=== PATIENT | male | born 1960 | race Caucasian/White ===

== ENCOUNTER 2017-04-19 21:55 | Emergency (ER) | payer OTHER ==
[~2017-04-19] VITALS: Ht 193 cm; Wt 75.0 kg
[~2017-04-19 21:55] MED LIST: AMOXICILLIN500 MG OR; AMOXICILLIN500 MG PO; ASPIRIN 81 LOW81 MG PO; ATENOLOL25 MG PO; BENADRYL 50MG C50 MG OR; BUPROPION150 M4 PO; BUSPAR15 M1 PO; CARDIZEM30 MG PO; CEPHALEXIN500 M1 OR; CEPHALEXIN500 MG OR; CEPHALEXIN500 MG PO; CLONAZEPAM1 MG PO; DIGOXIN0.25 MG PO; DILANTIN100 MG OR; DOXYCYCLINE100 MG PO; EUCERI1 TOP; FLECAINIDE150 MG PO; KEFLEX500 M1 PO; LITHIUM CARB300 MG PO; LOPRESSOR 550 MG/TAB PO; MUCINEX600 MG PO; MULTI VIT PO; OMEGA-3 FISH1000 MG PO; PAROXETINE20 MG PO; PHENOBARB OR; PHENOBARB20 MG/5 ML PO; PHENOBARB30 MG PO; PHENOBARB64.8 MG PO; RESOURCE; ULTRAM50 MG PO; VALPROIC ACD250 M1 PO; WARFARIN7.5 MG PO; WELLBUTRIN SR100 MG PO; WELLBUTRIN SR150 MG PO; ZYPREXA PO
[2017-04-19 22:31] LABS: HEMATOCRIT 43.1 % (39.0-50.0); HEMOGLOBIN 14.7 g/dl (14.0-18.0); IMMATURE GRANULOCYTES 0.2 % (0.0-1.0); MEAN CELL VOLUME 96.9 fL CALC (80.0-100.0); MEAN CORPUSCULAR HGB CONC 34.1 g/L CALC (32.0-36.0); NEUT# 1.79 thou/uL (1.82-7.42); RED BLOOD COUNT 4.45 mill/uL (4.70-6.10); RED CELL DISTRI WIDTH 13.4 % (11.5-15.5)
[2017-04-19] MEDS ORDERED: COUMADIN5 MG PO (22:44)
[2017-04-19] MEDS ORDERED: ATROVENT H17 MCG/ACT IN (22:45)
[2017-04-19 22:49] LABS: ALKALINE PHOSPHATASE 88 u/l (38-126); ANION GAP 14 (6-22 (CALC)); BILIRUBIN, TOTAL 0.6 mg/dL (0.0-1.4); BUN 18 mg/dL (9-20); BUN/CREATININE RATIO 18 (12-20 (CALC)); CALCIUM 8.6 mg/dL (8.4-10.2); CARBON DIOXIDE 25 mmol/l (22-30); CHLORIDE 106 mmol/l (95-108); GFR > 60 ML/MIN (>=60 (CALC)); GFR FOR AFR.AMER. > 60 ML/MIN (>=60 (CALC)); GLUCOSE 72 mg/dL (75-110); SGOT/AST 36 u/l (17-59); SGPT/ALT 28 u/l (21-72); SODIUM 141 mmol/l (137-146)
[2017-04-19 22:50] LABS: ACT PARTIAL THROMBO TIME 32.7 SECONDS (20.0-32.5); PROTHROMBIN TIME 22.2 SECONDS (9.0-12.5)
[2017-04-19 23:01] LABS: MYOGLOBIN 43 ng/mL (0 - 121)
[2017-04-20 00:52] VITALS: BP 101/52
== END 2017-04-20 00:23 | disposition left against medical advice (07) | DRG 313 ==
LOC: ED 21:55 → ED-I 23:35 → ED 04-20 00:23 → ED-I 04-20 00:25
PROVIDERS: Emergency Medicine
DX: R07.9 Chest pain, unspecified (principal); R00.2 Palpitations; R94.31 Abnormal electrocardiogram [ECG] [EKG]; R06.02 Shortness of breath; R42 Dizziness and giddiness; Z91.19 Patient's noncompliance with other medical treatment and regimen

== ENCOUNTER 2017-09-03 18:46 | Emergency (ER) | payer OTHER ==
[~2017-09-03] VITALS: Ht 193 cm; Wt 59.1 kg
[~2017-09-03 18:46] MED LIST changes: +ATROVENT H17 MCG/ACT IN; +COUMADIN5 MG PO
[2017-09-03 19:57] LABS: IMMATURE GRANULOCYTES 0.5 % (0.0-1.0); MEAN CELL VOLUME 99.7 fL CALC (80.0-100.0); MEAN CORPUSCULAR HGB 33.8 pG CALC (26.0-32.0); MEAN CORPUSCULAR HGB CONC 33.9 g/L CALC (32.0-36.0); NEUT# 4.62 thou/uL (1.82-7.42); RED BLOOD COUNT 3.37 mill/uL (4.70-6.10)
[2017-09-03 20:09] LABS: HEMATOCRIT 33.6 % (39.0-50.0); HEMOGLOBIN 11.4 g/dl (14.0-18.0)
[2017-09-03 21:11] LABS: ALBUMIN 2.9 g/dL (3.2-5.0); ALKALINE PHOSPHATASE 65 u/l (38-126); BILIRUBIN, TOTAL 0.7 mg/dL (0.0-1.4); BUN 19 mg/dL (9-20); BUN/CREATININE RATIO 20 (12-20 (CALC)); CARBON DIOXIDE 26 mmol/l (22-30); CHLORIDE 101 mmol/l (95-108); CREATININE 0.9 mg/dL (0.7-1.3); GFR > 60 ML/MIN (>=60 (CALC)); GFR FOR AFR.AMER. > 60 ML/MIN (>=60 (CALC)); POTASSIUM 4.3 mmol/l (3.5-5.1); SGOT/AST 31 u/l (17-59); SGPT/ALT 32 u/l (21-72); TOTAL PROTEIN 6.1 g/dL (6.3-8.2)
[2017-09-03 21:15] LABS: ANION GAP 11 (6-22 (CALC)); SODIUM 134 mmol/l (137-146)
[2017-09-03 21:29] LABS: DIGOXIN 0.4 ng/mL (0.8-2.0)
[2017-09-03 21:31] LABS: ACT PARTIAL THROMBO TIME 23.7 SECONDS (20.0-32.5)
[2017-09-03 21:39] LABS: MYOGLOBIN 102 ng/mL (0 - 121)
[2017-09-03 21:45] LABS: INTERNATIONAL NORMALIZED RATIO 1.1 RATIO (0.7-1.3); PROTHROMBIN TIME 12.6 SECONDS (9.0-12.5)
[2017-09-03 22:32] VITALS: BP 131/87
== END 2017-09-03 22:29 | disposition short-term general hospital (02) | DRG 605 ==
LOC: ED 18:46
PROVIDERS: Emergency Medicine
PROC: 0HQGXZZ Repair Left Hand Skin, External Approach (ICD-10-PCS; principal; 2017-09-03)
PROC: 0HQDXZZ Repair Right Lower Arm Skin, External Approach (ICD-10-PCS; 2017-09-03)
DX: S51.811A Laceration without foreign body of right forearm, initial encounter (principal); I47.2 Ventricular tachycardia; I48.91 Unspecified atrial fibrillation; S61.412A Laceration without foreign body of left hand, initial encounter; S61.511A Laceration without foreign body of right wrist, initial encounter; D64.9 Anemia, unspecified; X78.8XXA Intentional self-harm by other sharp object, initial encounter; Y92.149 Unspecified place in prison as the place of occurrence of the external cause; Z91.5 Personal history of self-harm; Z95.810 Presence of automatic (implantable) cardiac defibrillator; Z79.01 Long term (current) use of anticoagulants
CPT/HCPCS: J0282

== ENCOUNTER 2018-01-23 00:06 | Emergency (ER) | payer OTHER ==
[~2018-01-23] VITALS: Ht 193 cm; Wt 81.0 kg
[2018-01-23 00:57] LABS: HEMATOCRIT 36.9 % (39.0-50.0); HEMOGLOBIN 12.1 g/dl (14.0-18.0); IMMATURE GRANULOCYTES 0.2 % (0.0-5.0); MEAN CORPUSCULAR HGB 29.2 pG CALC (26.0-32.0); MEAN CORPUSCULAR HGB CONC 32.8 g/L CALC (32.0-36.0); NEUT# 2.4 thou/uL (1.82-7.42); RED BLOOD COUNT 4.15 mill/uL (4.70-6.10); RED CELL DISTRI WIDTH 17.5 % (11.5-15.5)
[2018-01-23 01:04] LABS: MEAN CELL VOLUME 88.9 fL CALC (80.0-100.0)
[2018-01-23 01:10] LABS: ALBUMIN 3.4 g/dL (3.2-5.0); ALKALINE PHOSPHATASE 71 u/l (38-126); ANION GAP 13 (6-22 (CALC)); BILIRUBIN, TOTAL 0.3 mg/dL (0.0-1.4); BUN 18 mg/dL (9-20); BUN/CREATININE RATIO 17 (12-20 (CALC)); CARBON DIOXIDE 25 mmol/l (22-30); CHLORIDE 104 mmol/l (95-108); CREATININE 1.1 mg/dL (0.7-1.3); GFR > 60 ML/MIN (>=60 (CALC)); GFR FOR AFR.AMER. > 60 ML/MIN (>=60 (CALC)); POTASSIUM 3.8 mmol/l (3.5-5.1); SGOT/AST 47 u/l (17-59); SGPT/ALT 33 u/l (21-72); SODIUM 138 mmol/l (137-146); TOTAL PROTEIN 7.4 g/dL (6.3-8.2)
[2018-01-23 01:23] VITALS: BP 99/58
== END 2018-01-23 01:22 | DRG 565 ==
LOC: ED 00:06
PROVIDERS: Emergency Medicine
DX: S56.922A Laceration of unspecified muscles, fascia and tendons at forearm level, left arm, initial encounter (principal); S56.921A Laceration of unspecified muscles, fascia and tendons at forearm level, right arm, initial encounter; S51.812A Laceration without foreign body of left forearm, initial encounter; S51.811A Laceration without foreign body of right forearm, initial encounter; J45.909 Unspecified asthma, uncomplicated; X78.1XXA Intentional self-harm by knife, initial encounter; Z91.5 Personal history of self-harm; Z95.810 Presence of automatic (implantable) cardiac defibrillator

== ENCOUNTER 2019-09-25 | Emergency (ER) | payer OTHER ==
[2019-09-25] MEDS ORDERED: KEFLEX500 M1 PO (17:08)
--- NOTE | 2019-09-27 12:55 | NUR ---
Covid results (Negative) faxed to [facility] [phone].
== END 2019-09-25 17:31 | disposition designated cancer center or children's hospital (05) | DRG 605 ==
PROC: 0HQEXZZ Repair Left Lower Arm Skin, External Approach (ICD-10-PCS; principal; 2019-09-25)
DX: S51.812A Laceration without foreign body of left forearm, initial encounter (principal); X78.9XXA Intentional self-harm by unspecified sharp object, initial encounter; Y92.149 Unspecified place in prison as the place of occurrence of the external cause; Z91.5 Personal history of self-harm; Z11.59 Encounter for screening for other viral diseases

== ENCOUNTER 2020-04-19 10:45 | Emergency (ER) | payer OTHER ==
[~2020-04-19] VITALS: Ht 193 cm; Wt 86.4 kg
[2020-04-19 11:24] LABS: HEMOGLOBIN 13.8 g/dl (14.0-18.0); IMMATURE GRANULOCYTES 0.2 % (0.0-5.0); MEAN CELL VOLUME 97.6 fL CALC (80.0-100.0); MEAN CORPUSCULAR HGB 32.9 pG CALC (26.0-32.0); MEAN CORPUSCULAR HGB CONC 33.7 g/dL CAL (32.0-36.0); NEUT# 1.95 thou/uL (1.82-7.42); RED BLOOD COUNT 4.2 mill/uL (4.70-6.10); RED CELL DISTRI WIDTH 12.6 % (11.5-15.5)
[2020-04-19 11:45] LABS: INTERNATIONAL NORMALIZED RATIO 3.4 RATIO (0.7-1.3); PROTHROMBIN TIME 32.4 SECONDS (9.0-12.5)
[2020-04-19 11:48] LABS: ALBUMIN 3.4 g/dL (3.2-5.0); ALKALINE PHOSPHATASE 76 u/l (38-126); BILIRUBIN, TOTAL 0.3 mg/dL (0.0-1.4); BUN 18 mg/dL (9-20); BUN/CREATININE RATIO 25 (12-20 (CALC)); CHLORIDE 94 mmol/l (95-108); CREATININE 0.7 mg/dL (0.7-1.3); GFR > 60 ML/MIN (>=60 (CALC)); GFR FOR AFR.AMER. > 60 ML/MIN (>=60 (CALC)); TOTAL PROTEIN 7.4 g/dL (6.3-8.2)
[2020-04-19 11:49] LABS: ANION GAP 9 (6-22 (CALC)); CARBON DIOXIDE 31 mmol/l (22-30); POTASSIUM 3.6 mmol/l (3.5-5.1); SGOT/AST 144 u/l (17-59); SODIUM 130 mmol/l (137-146)
[2020-04-19 11:59] LABS: MYOGLOBIN 245 ng/mL (0 - 121)
[2020-04-19 13:08] LABS: URINE BILIRUBIN - DIPSTICK NEGATIVE (NEGATIVE); URINE BLOOD DIPSTICK MODERATE (NEGATIVE); URINE COLOR YELLOW; URINE GLUCOSE - DIPSTICK NEGATIVE (NEGATIVE); URINE KETONE NEGATIVE (NEGATIVE); URINE LEUK ESTERASE NEGATIVE (NEGATIVE); URINE NITRITE - DIPSTICK NEGATIVE (Negative); URINE PROTEIN - DIPSTICK NEGATIVE (NEG-TRACE); URINE SPECIFIC GRAVITY 1.015; URINE UROBILINOGEN - DIPSTICK 0.2 E.U./dL (0.2)
[2020-04-19] MEDS ORDERED: OLANZAPINE15 MG PO (13:27)
[2020-04-19] MEDS ORDERED: PHENOBARB64.8 MG PO ×2 (13:28)
[2020-04-19] MEDS ORDERED: METOPROLOL TART50 MG PO (13:29)
[2020-04-19] MEDS ORDERED: MINERI1 TOP (13:29)
[2020-04-19] MEDS ORDERED: DIPHENHYDRAM25 MG PO (13:35)
[2020-04-19] MEDS ORDERED: WARFARIN4 MG PO (13:35)
[2020-04-19] MEDS ORDERED: DIGOX250 MCG PO (13:36)
[2020-04-19] MEDS ORDERED: VENLAFAXINE HCL75 M1 PO (13:36)
[2020-04-19] MEDS ORDERED: TRAMADOL HCL50 MG PO (13:37)
[2020-04-19] MEDS ORDERED: HYDROCORTISONE1 % TOP (13:38)
[2020-04-19] MEDS ORDERED: CORRECTOL100 MG PO (13:38)
[2020-04-19] MEDS ORDERED: BACLOFEN20 MG PO (13:39)
[2020-04-19] MEDS ORDERED: ROBAFEN MU200 MG/10 PO (13:39)
[2020-04-19] MEDS ORDERED: [UNRECOGNIZED DRUG - OTHER] MT (13:40)
[2020-04-19] MEDS ORDERED: IBUPROFEN600 MG PO (13:41)
[2020-04-19] MEDS ORDERED: ALBUTEROL SUL0.083 % IN (13:41)
[2020-04-19] MEDS ORDERED: KEFLEX500 MG PO (15:46)
[2020-04-19 17:00] VITALS: BP 111/80
--- NOTE | 2020-04-23 10:49 | NUR ---
Notified Buster at [facility] ([phone]) of positive results. Faxed results to [phone].
== END 2020-04-19 17:00 | disposition designated cancer center or children's hospital (05) | DRG 179 ==
LOC: ED 10:45
PROVIDERS: Emergency Medicine
PROC: 0T9B70Z Drainage of Bladder with Drainage Device, Via Natural or Artificial Opening (ICD-10-PCS; principal; 2020-04-19)
DX: U07.1 COVID-19 (principal); R33.9 Retention of urine, unspecified; J44.9 Chronic obstructive pulmonary disease, unspecified; I10 Essential (primary) hypertension; I48.91 Unspecified atrial fibrillation; F31.9 Bipolar disorder, unspecified; Z79.01 Long term (current) use of anticoagulants; Z95.810 Presence of automatic (implantable) cardiac defibrillator
CPT/HCPCS: Q9967

== ENCOUNTER 2020-05-01 11:23 | Inpatient (IN) | payer OTHER ==
[~2020-05-01] VITALS: Ht 190.5 cm; Wt 87.8 kg
[2020-05-01] VITALS (16 sets, daily range): BP systolic 72–139; BP diastolic 45–95
[~2020-05-01 11:23] MED LIST changes: +ALBUTEROL SUL0.083 % IN; +BACLOFEN20 MG PO; +CORRECTOL100 MG PO; +DIGOX250 MCG PO; +DIPHENHYDRAM25 MG PO; +HYDROCORTISONE1 % TOP; +IBUPROFEN600 MG PO; +KEFLEX500 MG PO; +METOPROLOL TART50 MG PO; +MINERI1 TOP; +ROBAFEN MU200 MG/10 PO; +TRAMADOL HCL50 MG PO; +VENLAFAXINE HCL75 M1 PO; +WARFARIN4 MG PO; +ZYPREXA ZYDI5 MG PO; +[UNRECOGNIZED DRUG - OTHER] MT
[2020-05-01 12:30] LABS: HEMATOCRIT 45.5 % (39.0-50.0); HEMOGLOBIN 15.5 g/dl (14.0-18.0); IMMATURE GRANULOCYTES 0.2 % (0.0-5.0); MEAN CELL VOLUME 96.2 fL CALC (80.0-100.0); MEAN CORPUSCULAR HGB 32.8 pG CALC (26.0-32.0); MEAN CORPUSCULAR HGB CONC 34.1 g/dL CAL (32.0-36.0); NEUT# 3.06 thou/uL (1.82-7.42); RED BLOOD COUNT 4.73 mill/uL (4.70-6.10); RED CELL DISTRI WIDTH 12.3 % (11.5-15.5)
[2020-05-01 12:55] LABS: ALBUMIN 3.8 g/dL (3.2-5.0); BUN 15 mg/dL (9-20); BUN/CREATININE RATIO 18 (12-20 (CALC)); CARBON DIOXIDE 31 mmol/l (22-30); CHLORIDE 100 mmol/l (95-108); CREATININE 0.8 mg/dL (0.7-1.3); GFR > 60 ML/MIN (>=60 (CALC)); GFR FOR AFR.AMER. > 60 ML/MIN (>=60 (CALC)); SGOT/AST 173 u/l (17-59)
[2020-05-01 12:59] LABS: ALKALINE PHOSPHATASE 120 u/l (38-126); ANION GAP 12 (6-22 (CALC)); BILIRUBIN, TOTAL 0.8 mg/dL (0.0-1.4); POTASSIUM 4.7 mmol/l (3.5-5.1); SODIUM 138 mmol/l (137-146)
[2020-05-01] MEDS ORDERED: OLANZAPINE10 MG PO (13:45)
[2020-05-01] MEDS ORDERED: VITA D-1000 PO (13:47)
[2020-05-01] MEDS ORDERED: ZINC220 MG PO (13:47)
[2020-05-01 14:14] LABS: URINE BLOOD DIPSTICK LARGE (NEGATIVE); URINE COLOR YELLOW; URINE GLUCOSE - DIPSTICK NEGATIVE (NEGATIVE); URINE KETONE 40 mg/dL (NEGATIVE); URINE LEUK ESTERASE NEGATIVE (NEGATIVE); URINE NITRITE - DIPSTICK NEGATIVE (Negative); URINE PROTEIN - DIPSTICK TRACE mg/dL (NEG-TRACE); URINE SPECIFIC GRAVITY 1.025; URINE UROBILINOGEN - DIPSTICK 0.2 E.U./dL (0.2)
[2020-05-01 14:18] LABS: URINE BILIRUBIN - DIPSTICK SMALL (NEGATIVE)
[2020-05-01 14:46] LABS: PROTHROMBIN TIME > 170.9 SECONDS (9.0-12.5)
[2020-05-01 14:47] LABS: INTERNATIONAL NORMALIZED RATIO > 13.0 RATIO (0.7-1.3)
[2020-05-02] VITALS (17 sets, daily range): BP systolic 77–129; BP diastolic 48–82
[2020-05-02 05:58] LABS: MEAN CELL VOLUME 97.3 fL CALC (80.0-100.0); MEAN CORPUSCULAR HGB 33.3 pG CALC (26.0-32.0); MEAN CORPUSCULAR HGB CONC 34.3 g/dL CAL (32.0-36.0); RED BLOOD COUNT 3.72 mill/uL (4.70-6.10); RED CELL DISTRI WIDTH 12.5 % (11.5-15.5)
[2020-05-02 06:15] LABS: ANION GAP 10 (6-22 (CALC)); BUN 10 mg/dL (9-20); BUN/CREATININE RATIO 15 (12-20 (CALC)); CALCULATED LDLCHOLESTEROL 93 mg/dL (62-129 (CALC)); CARBON DIOXIDE 25 mmol/l (22-30); CHLORIDE 105 mmol/l (95-108); CHOLESTEROL HDL RATIO 6.9 (<4.4 (CALC)); CREATININE 0.7 mg/dL (0.7-1.3); GFR > 60 ML/MIN (>=60 (CALC)); GFR FOR AFR.AMER. > 60 ML/MIN (>=60 (CALC)); HDL CHOLESTEROL 19 mg/dL (>=40); MAGNESIUM 1.4 mg/dL (1.6-2.3); POTASSIUM 4.1 mmol/l (3.5-5.1); SODIUM 136 mmol/l (137-146); TOTAL CHOLESTEROL 131 mg/dl (0-199); TOTAL TRIGLYCERIDES 96 mg/dl (30-149); VLDL CHOLESTROL 19 mg/dl (8-62 (CALC))
[2020-05-02 06:28] LABS: HEMATOCRIT 36.2 % (39.0-50.0); HEMOGLOBIN 12.4 g/dl (14.0-18.0)
[2020-05-02 06:33] LABS: INTERNATIONAL NORMALIZED RATIO 1.8 RATIO (0.7-1.3); PROTHROMBIN TIME 17.3 SECONDS (9.0-12.5)
[2020-05-03] VITALS (16 sets, daily range): BP systolic 87–126; BP diastolic 59–93
[2020-05-03 05:22] LABS: HEMATOCRIT 35.6 % (39.0-50.0); MEAN CELL VOLUME 96.7 fL CALC (80.0-100.0); MEAN CORPUSCULAR HGB 32.6 pG CALC (26.0-32.0); MEAN CORPUSCULAR HGB CONC 33.7 g/dL CAL (32.0-36.0); RED BLOOD COUNT 3.68 mill/uL (4.70-6.10); RED CELL DISTRI WIDTH 12.5 % (11.5-15.5)
[2020-05-03 05:45] LABS: INTERNATIONAL NORMALIZED RATIO 1.6 RATIO (0.7-1.3); PROTHROMBIN TIME 15.6 SECONDS (9.0-12.5)
[2020-05-03 07:32] LABS: ALBUMIN 2.4 g/dL (3.2-5.0); ALKALINE PHOSPHATASE 87 u/l (38-126); ANION GAP 7 (6-22 (CALC)); BILIRUBIN, TOTAL 0.7 mg/dL (0.0-1.4); BUN 7 mg/dL (9-20); BUN/CREATININE RATIO 12 (12-20 (CALC)); CARBON DIOXIDE 25 mmol/l (22-30); CHLORIDE 107 mmol/l (95-108); CREATININE 0.6 mg/dL (0.7-1.3); GFR > 60 ML/MIN (>=60 (CALC)); GFR FOR AFR.AMER. > 60 ML/MIN (>=60 (CALC)); POTASSIUM 3.9 mmol/l (3.5-5.1); SGOT/AST 79 u/l (17-59); SODIUM 135 mmol/l (137-146); TOTAL PROTEIN 5.6 g/dL (6.3-8.2)
[2020-05-03] MEDS ORDERED: KEFLEX500 MG PO (11:29)
== END 2020-05-03 16:30 | disposition designated cancer center or children's hospital (05) | DRG 690 ==
LOC: ED 11:23 → ED-I 14:40 → ED 15:01 → ICU 15:02
PROVIDERS: Nurse Practitioner; Nurse Practitioner Family; Student in an Organized Health Care Education/Training Program; ADMIT Internal Medicine; ATTEND Internal Medicine
DX: N39.0 Urinary tract infection, site not specified (principal); R33.9 Retention of urine, unspecified; I48.91 Unspecified atrial fibrillation; I10 Essential (primary) hypertension; G40.909 Epilepsy, unspecified, not intractable, without status epilepticus; I25.10 Atherosclerotic heart disease of native coronary artery without angina pectoris; F31.9 Bipolar disorder, unspecified; J45.909 Unspecified asthma, uncomplicated; Z20.828 Contact with and (suspected) exposure to other viral communicable diseases; Z79.01 Long term (current) use of anticoagulants; Z79.891 Long term (current) use of opiate analgesic; Z79.899 Other long term (current) drug therapy; Z88.8 Allergy status to other drugs, medicaments and biological substances; Z95.0 Presence of cardiac pacemaker
CPT/HCPCS: J1160

== ENCOUNTER 2020-07-16 22:01 | Emergency (ER) | payer OTHER ==
[~2020-07-16] VITALS: Ht 193 cm; Wt 86.0 kg
[~2020-07-16 22:01] MED LIST changes: +OLANZAPINE10 MG PO; +VITA D-1000 PO; +ZINC220 MG PO
[2020-07-16 22:35] LABS: IMMATURE GRANULOCYTES 0.2 % (0.0-5.0); MEAN CELL VOLUME 99.3 fL CALC (80.0-100.0); MEAN CORPUSCULAR HGB 33.3 pG CALC (26.0-32.0); MEAN CORPUSCULAR HGB CONC 33.6 g/dL CAL (32.0-36.0); NEUT# 3.15 thou/uL (1.82-7.42); RED BLOOD COUNT 4.38 mill/uL (4.70-6.10); RED CELL DISTRI WIDTH 13.3 % (11.5-15.5)
[2020-07-16 22:40] LABS: HEMATOCRIT 43.5 % (39.0-50.0); HEMOGLOBIN 14.6 g/dl (14.0-18.0)
[2020-07-16 23:19] LABS: ALKALINE PHOSPHATASE 113 u/l (38-126); ANION GAP 12 (6-22 (CALC)); BILIRUBIN, TOTAL 0.6 mg/dL (0.0-1.4); BUN 11 mg/dL (9-20); BUN/CREATININE RATIO 15 (12-20 (CALC)); CARBON DIOXIDE 27 mmol/l (22-30); CHLORIDE 95 mmol/l (95-108); CPK 117 u/l (52-200); CREATININE 0.8 mg/dL (0.7-1.3); GFR > 60 ML/MIN (>=60 (CALC)); GFR FOR AFR.AMER. > 60 ML/MIN (>=60 (CALC)); LIPASE 62 u/l (23-300); POTASSIUM 4.1 mmol/l (3.5-5.1); SGOT/AST 42 u/l (17-59); SODIUM 131 mmol/l (137-146)
[2020-07-16 23:28] LABS: ALBUMIN 4.1 g/dL (3.2-5.0); TOTAL PROTEIN 8.4 g/dL (6.3-8.2)
[2020-07-17 00:44] VITALS: BP 133/97
== END 2020-07-17 00:43 | disposition short-term general hospital (02) | DRG 311 ==
LOC: ED 22:01
DX: I24.9 Acute ischemic heart disease, unspecified (principal); I48.91 Unspecified atrial fibrillation; I10 Essential (primary) hypertension; J45.909 Unspecified asthma, uncomplicated; F31.9 Bipolar disorder, unspecified; E78.5 Hyperlipidemia, unspecified; Z91.5 Personal history of self-harm; Z95.810 Presence of automatic (implantable) cardiac defibrillator; Z20.822 Contact with and (suspected) exposure to COVID-19

== ENCOUNTER 2021-09-13 21:44 | Observation (INO) | payer OTHER ==
[2021-09-13] VITALS (9 sets, daily range): BP systolic 97–126; BP diastolic 66–85
[~2021-09-13] VITALS: Ht 193 cm; Wt 86.1 kg
[2021-09-13 22:34] LABS: HEMATOCRIT 44.6 % (39.0-50.0); HEMOGLOBIN 15.3 g/dl (14.0-18.0); IMMATURE GRANULOCYTES 0.1 % (0.0-5.0); MEAN CELL VOLUME 98.5 fL CALC (80.0-100.0); MEAN CORPUSCULAR HGB 33.8 pG CALC (26.0-32.0); MEAN CORPUSCULAR HGB CONC 34.3 g/dL CAL (32.0-36.0); NEUT# 3.15 thou/uL (1.82-7.42); RED BLOOD COUNT 4.53 mill/uL (4.70-6.10); RED CELL DISTRI WIDTH 12.5 % (11.5-15.5); URINE BILIRUBIN - DIPSTICK NEGATIVE (NEGATIVE); URINE BLOOD DIPSTICK TRACE-INTACT (NEGATIVE); URINE COLOR YELLOW; URINE GLUCOSE - DIPSTICK NEGATIVE (NEGATIVE); URINE KETONE NEGATIVE (NEGATIVE); URINE LEUK ESTERASE NEGATIVE (NEGATIVE); URINE NITRITE - DIPSTICK NEGATIVE (Negative); URINE PROTEIN - DIPSTICK NEGATIVE (NEG-TRACE); URINE SPECIFIC GRAVITY <=1.005; URINE UROBILINOGEN - DIPSTICK 0.2 E.U./dL (0.2)
[2021-09-13 22:44] LABS: ALBUMIN 4.5 g/dL (3.2-5.0); ALKALINE PHOSPHATASE 124 u/l (38-126); ANION GAP 10 (6-22 (CALC)); BILIRUBIN, TOTAL 0.4 mg/dL (0.0-1.4); BUN 6 mg/dL (9-20); BUN/CREATININE RATIO 7 (12-20 (CALC)); CARBON DIOXIDE 31 mmol/l (22-30); CHLORIDE 95 mmol/l (95-108); CREATININE 0.9 mg/dL (0.7-1.3); GFR > 60 ML/MIN (>=60 (CALC)); GFR FOR AFR.AMER. > 60 ML/MIN (>=60 (CALC)); POTASSIUM 3.9 mmol/l (3.5-5.1); SGOT/AST 41 u/l (17-59); SODIUM 132 mmol/l (137-146); TOTAL PROTEIN 9.2 g/dL (6.3-8.2)
[2021-09-13 22:53] LABS: MYOGLOBIN 28 ng/mL (0 - 121)
[2021-09-13] MEDS ORDERED: LORATADINE10 M1 PO (22:59)
[2021-09-13] MEDS ORDERED: PHENOBARB PO (23:01)
[2021-09-13] MEDS ORDERED: QVAR REDIH80 MCG/ACT IN (23:02)
[2021-09-13] MEDS ORDERED: ALBUTEROL HFA IN (23:04)
[2021-09-13] MEDS ORDERED: LIPITOR40 M1 PO (23:05)
[2021-09-13] MEDS ORDERED: DIPHENHYDRAM50 M2 PO (23:06)
[2021-09-13] MEDS ORDERED: FUROSEMIDE20 MG PO (23:07)
[2021-09-13] MEDS ORDERED: OLANZAPINE10 MG PO (23:08)
[2021-09-13 23:14] LABS: PROTHROMBIN TIME 10.4 SECONDS (9.0-12.5)
[2021-09-14] VITALS (10 sets, daily range): BP systolic 98–127; BP diastolic 71–87
[2021-09-14 06:22] LABS: HEMATOCRIT 44.8 % (39.0-50.0); HEMOGLOBIN 15.2 g/dl (14.0-18.0); MEAN CELL VOLUME 98.7 fL CALC (80.0-100.0); MEAN CORPUSCULAR HGB 33.5 pG CALC (26.0-32.0); MEAN CORPUSCULAR HGB CONC 33.9 g/dL CAL (32.0-36.0); RED BLOOD COUNT 4.54 mill/uL (4.70-6.10); RED CELL DISTRI WIDTH 12.7 % (11.5-15.5)
[2021-09-14 06:35] LABS: ANION GAP 12 (6-22 (CALC)); BUN 6 mg/dL (9-20); BUN/CREATININE RATIO 8 (12-20 (CALC)); CALCULATED LDLCHOLESTEROL 76 mg/dL (62-129 (CALC)); CARBON DIOXIDE 27 mmol/l (22-30); CHLORIDE 102 mmol/l (95-108); CHOLESTEROL HDL RATIO 4.4 (<4.4 (CALC)); CREATININE 0.8 mg/dL (0.7-1.3); GFR > 60 ML/MIN (>=60 (CALC)); GFR FOR AFR.AMER. > 60 ML/MIN (>=60 (CALC)); HDL CHOLESTEROL 32 mg/dL (>=40); POTASSIUM 3.6 mmol/l (3.5-5.1); SODIUM 138 mmol/l (137-146); TOTAL CHOLESTEROL 141 mg/dl (0-199); TOTAL TRIGLYCERIDES 166 mg/dl (30-149); VLDL CHOLESTROL 33 mg/dl (8-62 (CALC))
== END 2021-09-14 12:55 | disposition designated cancer center or children's hospital (05) | DRG 313 ==
LOC: ED 21:44 → ED-I 23:18 → ED 23:32 → MS2 23:33
PROVIDERS: Emergency Medicine; ADMIT Hospitalist; ATTEND Hospitalist
DX: R07.9 Chest pain, unspecified (principal); I11.0 Hypertensive heart disease with heart failure; I50.9 Heart failure, unspecified; I25.10 Atherosclerotic heart disease of native coronary artery without angina pectoris; I48.91 Unspecified atrial fibrillation; J45.909 Unspecified asthma, uncomplicated; F31.9 Bipolar disorder, unspecified; E78.5 Hyperlipidemia, unspecified; G40.909 Epilepsy, unspecified, not intractable, without status epilepticus; Z86.16 Personal history of COVID-19; Z79.01 Long term (current) use of anticoagulants; Z95.810 Presence of automatic (implantable) cardiac defibrillator; Z87.891 Personal history of nicotine dependence; Z91.52 Personal history of nonsuicidal self-harm; Z20.822 Contact with and (suspected) exposure to COVID-19
CPT/HCPCS: G0378

== ENCOUNTER 2021-11-10 10:19 | Emergency (ER) | payer OTHER ==
[~2021-11-10] VITALS: Ht 193 cm; Wt 93.1 kg
[2021-11-10] VITALS (43 sets, daily range): BP systolic 92–130; BP diastolic 64–94
[~2021-11-10 10:19] MED LIST changes: +ALBUTEROL HFA IN; +DIPHENHYDRAM50 M2 PO; +FUROSEMIDE20 MG PO; +LIPITOR40 M1 PO; +LORATADINE10 M1 PO; +PHENOBARB PO; +QVAR REDIH80 MCG/ACT IN
[2021-11-10] MEDS ORDERED: PHENOBARB64.8 MG PO (11:03)
[2021-11-10] MEDS ORDERED: ZYPREXA ZYDI5 MG PO (11:03)
[2021-11-10] MEDS ORDERED: GABAPENTIN250 MG/5 M PO (11:04)
[2021-11-10] MEDS ORDERED: WELLBUTRIN200 M1 PO (11:05)
[2021-11-10] MEDS ORDERED: DULOXETINE HCL20 MG PO (11:06)
[2021-11-10 11:10] LABS: HEMATOCRIT 43.6 % (39.0-50.0); HEMOGLOBIN 14.5 g/dl (14.0-18.0); IMMATURE GRANULOCYTES 0.2 % (0.0-5.0); MEAN CELL VOLUME 102.6 fL CALC (80.0-100.0); MEAN CORPUSCULAR HGB 34.1 pG CALC (26.0-32.0); MEAN CORPUSCULAR HGB CONC 33.3 g/dL CAL (32.0-36.0); NEUT# 2.81 thou/uL (1.82-7.42); RED BLOOD COUNT 4.25 mill/uL (4.70-6.10); RED CELL DISTRI WIDTH 14.8 % (11.5-15.5)
[2021-11-10 11:20] LABS: INTERNATIONAL NORMALIZED RATIO 5.1 RATIO (0.7-1.3); PROTHROMBIN TIME 47.9 SECONDS (9.0-12.5)
[2021-11-10 12:42] LABS: ALBUMIN 3.7 g/dL (3.2-5.0); ALKALINE PHOSPHATASE 125 u/l (38-126); BILIRUBIN, TOTAL 0.5 mg/dL (0.0-1.4); BUN 9 mg/dL (9-20); BUN/CREATININE RATIO 10 (12-20 (CALC)); CARBON DIOXIDE 25 mmol/l (22-30); CHLORIDE 98 mmol/l (95-108); CREATININE 0.9 mg/dL (0.7-1.3); GFR FOR AFR.AMER. > 60 ML/MIN (>=60 (CALC)); GFR OTHER RACES > 60 ML/MIN (>=60 (CALC)); SGOT/AST 36 u/l (17-59); TOTAL PROTEIN 7.6 g/dL (6.3-8.2)
[2021-11-10 12:44] LABS: ANION GAP 11 (6-22 (CALC)); POTASSIUM 3.5 mmol/l (3.5-5.1); SODIUM 130 mmol/l (137-146)
== END 2021-11-10 15:00 | disposition left against medical advice (07) | DRG 310 ==
LOC: ED 10:19
PROVIDERS: Family Medicine
DX: I48.20 Chronic atrial fibrillation, unspecified (principal); Z79.01 Long term (current) use of anticoagulants; S09.90XA Unspecified injury of head, initial encounter; W18.30XA Fall on same level, unspecified, initial encounter; R10.9 Unspecified abdominal pain; Z53.29 Procedure and treatment not carried out because of patient's decision for other reasons; I10 Essential (primary) hypertension; M54.2 Cervicalgia
CPT/HCPCS: Q9967

== ENCOUNTER 2022-04-03 16:32 | Emergency (ER) | payer OTHER ==
[~2022-04-03] VITALS: Ht 193 cm; Wt 98.3 kg
[~2022-04-03 16:32] MED LIST changes: +DULOXETINE HCL20 MG PO; +GABAPENTIN250 MG/5 M PO; +WELLBUTRIN200 M1 PO
[2022-04-03 16:38] VITALS: BP 116/84
[2022-04-03 17:00] VITALS: BP 119/87
[2022-04-03 17:05] LABS: HEMATOCRIT 41.6 % (39.0-50.0); HEMOGLOBIN 14.3 g/dl (14.0-18.0); IMMATURE GRANULOCYTES 0.4 % (0.0-5.0); MEAN CELL VOLUME 101.7 fL CALC (80.0-100.0); MEAN CORPUSCULAR HGB CONC 34.4 g/dL CAL (32.0-36.0); NEUT# 3.55 thou/uL (1.82-7.42); RED BLOOD COUNT 4.09 mill/uL (4.70-6.10); RED CELL DISTRI WIDTH 12.4 % (11.5-15.5)
[2022-04-03 17:15] LABS: ALBUMIN 3.9 g/dL (3.2-5.0); ALKALINE PHOSPHATASE 169 u/l (38-126); ANION GAP 14 (6-22 (CALC)); BILIRUBIN, TOTAL 0.3 mg/dL (0.0-1.4); BUN 9 mg/dL (9-20); BUN/CREATININE RATIO 11 (12-20 (CALC)); CARBON DIOXIDE 24 mmol/l (22-30); CHLORIDE 99 mmol/l (95-108); CREATININE 0.8 mg/dL (0.7-1.3); GFR FOR AFR.AMER. > 60 ML/MIN (>=60 (CALC)); GFR OTHER RACES > 60 ML/MIN (>=60 (CALC)); POTASSIUM 4.2 mmol/l (3.5-5.1); SGOT/AST 39 u/l (17-59); SODIUM 132 mmol/l (137-146); TOTAL PROTEIN 8.2 g/dL (6.3-8.2)
[2022-04-03 17:31] VITALS: BP 127/92
[2022-04-03 18:00] VITALS: BP 124/91
== END 2022-04-03 18:35 | disposition home or self-care (01) | DRG 101 ==
LOC: ED 16:32
PROVIDERS: Family Medicine
DX: G40.909 Epilepsy, unspecified, not intractable, without status epilepticus (principal); I10 Essential (primary) hypertension; Z95.810 Presence of automatic (implantable) cardiac defibrillator; F17.200 Nicotine dependence, unspecified, uncomplicated

== ENCOUNTER 2022-12-25 04:49 | Emergency (ER) | payer OTHER ==
[~2022-12-25] VITALS: Ht 193 cm; Wt 88.0 kg
[2022-12-25] VITALS (10 sets, daily range): BP systolic 100–120; BP diastolic 53–86
[~2022-12-25 04:49] MED LIST changes: +WARFARIN2 MG PO; -WARFARIN4 MG PO; +ZYPREXA ZYDI10 MG PO
[2022-12-25 05:20] LABS: BASO% 1.1 % (0-3); EOS% 14.1 % (0-8); HEMATOCRIT 49.7 % (39.0-50.0); HEMOGLOBIN 15.9 g/dl (14.0-18.0); IMMATURE GRANULOCYTES 0.2 % (0.0-5.0); LYMPH% 25.9 % (15-41); MEAN CELL VOLUME 103.1 fL CALC (80.0-100.0); MONO% 8.6 % (2-13); NEUT# 2.63 thou/uL (1.82-7.42); NEUT% 50.1 % (42-76); RED BLOOD COUNT 4.82 mill/uL (4.70-6.10); RED CELL DISTRI WIDTH 12.6 % (11.5-15.5)
[2022-12-25] MEDS ORDERED: LAMICTAL100 M1 PO (05:25)
[2022-12-25] MEDS ORDERED: PHENOBARB20 MG/5 ML PO (05:26)
[2022-12-25 05:32] LABS: ALBUMIN 4.4 g/dL (3.2-5.0); ALKALINE PHOSPHATASE 146 u/l (38-126); ANION GAP 10 (6-22 (CALC)); BILIRUBIN, TOTAL 0.6 mg/dL (0.2-1.3); BUN 18 mg/dL (8-23); BUN/CREATININE RATIO 18 (12-20 (CALC)); CARBON DIOXIDE 38 mmol/l (22-30); CHLORIDE 96 mmol/l (95-108); GFR FOR AFR.AMER. > 60 ML/MIN (>=60 (CALC)); GFR OTHER RACES > 60 ML/MIN (>=60 (CALC)); POTASSIUM 4.8 mmol/l (3.5-5.1); SGOT/AST 65 u/l (19-48); SODIUM 139 mmol/l (137-146); TOTAL PROTEIN 9.3 g/dL (6.3-8.2)
[2022-12-25 06:33] LABS: INTERNATIONAL NORMALIZED RATIO 2.2 RATIO (0.7-1.3)
[2022-12-25] MEDS ORDERED: PREDNISONE50 MG PO (06:40)
[2022-12-25] MEDS ORDERED: IPRATROPIU0.5 MG/3 M IN (06:40)
[2022-12-25] MEDS ORDERED: VIBRAMYCIN100 M2 PO (06:40)
== END 2022-12-25 06:48 | disposition home or self-care (01) | DRG 192 ==
LOC: ED 04:49
PROVIDERS: Family Medicine
DX: J44.1 Chronic obstructive pulmonary disease with (acute) exacerbation (principal); I48.91 Unspecified atrial fibrillation; I10 Essential (primary) hypertension; G40.909 Epilepsy, unspecified, not intractable, without status epilepticus; G20 Parkinson's disease
CPT/HCPCS: J1160